=== PATIENT | female | born 1995 | race Caucasian/White ===

== ENCOUNTER 2016-12-08 19:19 | Emergency (ER) | payer SELFPAY ==
[2016-12-08 20:02] LABS: Hematocrit 41 % (35-47); Hemoglobin 13.7 g/dl (12.0-16.0); Mean Corpuscular HGB Conc 33 g/dl (31-36); Mean Corpuscular Hemoglobin 32 pg (27-31); Mean Corpuscular Volume 96 fL (80-97); Mean Platelet Volume 9 um3 (7.4-10.4); Red Blood Count 4.27 10^6/ul (4.0-5.4); Red Cell Distribution Width 13 % (10.5-15)
[2016-12-08 20:17] LABS: ALT 11 U/L (7-52); AST 21 U/L (13-39); Albumin 4.1 g/dL (3.2-5.2); Alkaline Phosphatase 62 U/L (34-104); Anion Gap 12 mmol/L (2-11); BUN/Creatinine Ratio 11.1 (8-20); Blood Urea Nitrogen 11 mg/dL (6-24); CO2 Carbon Dioxide 22 mmol/L (22-32); Calcium 8.9 mg/dL (8.6-10.3); Chloride 106 mmol/L (101-111); EGFR African American 90.2 (>60); EGFR Non-African American 70.1 (>60); Globulin 2.9 g/dL (2-4); Glucose 113 mg/dL (70-100); Potassium 3.6 mmol/L (3.5-5.0); Sodium 140 mmol/L (133-145)
[2016-12-08 20:42] LABS: Acetaminophen < 15 mcg/mL; Alcohol 284 mg/dL (<10); Salicylate < 2.50 mg/dL (<30)
[2016-12-08 20:53] LABS: TSH (Thyroid Stimulating Horm) 1.11 mcIU/mL (0.34-5.60)
[2016-12-08 22:35] VITALS: BP 102/65
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
== END 2016-12-08 23:09 | disposition home or self-care (01) ==
LOC: ED 19:19
DX: F10.129 Alcohol abuse with intoxication, unspecified (principal); Y90.8 Blood alcohol level of 240 mg/100 ml or more
CPT/HCPCS: 36415; 80053; 80320; 80329; 84443; 84702; 85025; 99284; G0480

== ENCOUNTER 2018-12-09 16:03 | Emergency (ER) | payer BC, OTHER ==
[2018-12-09 16:20] VITALS: BP 150/90
--- NOTE | 2018-12-09 16:36 | UC ---
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 hyper extended right wrist and felt pop in right proximal FA c/o pain even at rest no decreased ROM - History Of Current Complaint Chief Complaint: UCUpperExtremity Stated Complaint: RT ARM PAIN Time Seen by Provider: 12/09/18 16:17 Hx Obtained From: Patient Hx Last Menstrual Period: 02/21/19 Onset/Duration: Sudden Onset, Lasting Days Severity Initially: Moderate Severity Currently: Moderate Pain Intensity: 7 Pain Scale Used: 0-10 Numeric Character Of Pain: Sharp, Dull, Aching, Throbbing Aggravating Factor(s): Movement Alleviating Factor(s): Rest Associated Signs And Symptoms: Negative: Swelling, Redness, Bruising, Fever, Weakness, Numbness/Tingling Related History: Occupational Injury, Dominant Hand Right Hands: 1 - pain - Allergies/Home Medications Allergies/Adverse Reactions: Allergies Allergy/AdvReac Type Severity Reaction Status Date / Time No Known Allergies Allergy Verified 12/09/18 16:20 PMH/Surg Hx/FS Hx/Imm Hx Previously Healthy: Yes - Surgical History Surgical History: Yes Surgery Procedure, Year, and Place: wisdom teeth - Family History Known Family History: Positive: Hypertension - Social History Alcohol Use: Weekly Substance Use Type: None Smoking Status (MU): Light Every Day Tobacco Smoker Review of Systems All Other Systems Reviewed And Are Negative: Yes Constitutional: Positive: Negative Skin: Positive: Negative Eyes: Positive: Negative ENT: Positive: Negative Respiratory: Positive: Negative Cardiovascular: Positive: Negative Gastrointestinal: Positive: Negative Genitourinary: Positive: Negative Musculoskeletal: Positive: Arthralgia - right wrist, Myalgia - right forearm Neurological: Positive: Negative Psychological: Positive: Negative Physical Exam Triage Information Reviewed: Yes Appearance: Well-Appearing, No Pain Distress, Well-Nourished Vital Signs: Initial Vital Signs Temp 99 F 12/09/18 16:09 Pulse 85 12/09/18 16:09 Resp 12 12/09/18 16:09 BP 150/90 12/09/18 16:09 Pulse Ox 100 12/09/18 16:09 Vital Signs Reviewed: Yes Eyes: Positive: Conjunctiva Clear ENT: Positive: Hearing grossly normal. Negative: Nasal congestion, Nasal drainage, Trismus, Muffled voice, Hoarse voice Dental: Negative: Gross Decay/Caries @ Neck: Positive: Supple Respiratory: Positive: Lungs clear, Normal breath sounds, No respiratory distress, No accessory muscle use Cardiovascular: Positive: RRR, No Murmur Musculoskeletal: Positive: ROM Intact, No Edema, Other: - FROM right wrist, wrist slightly tender, no swelling, point tenderness right prox forearm ROM right elbow and shoulder Neurological: Positive: Alert Psychological Exam: Normal Skin Exam: Normal Images Front/Back of Body, Lg ([place]): 1 - pain 2 - radiates here Hand/Wrist Course/Dx - Course Course Of Treatment: pt refuses imaging, refuses rg wrap on forearm, refuses wrist splint she refuses a work note despite acknowledging that she will not be able to do here job in her current condition I informed her I thought she partially tore her forearm muscle and sprained her wrist given Dr. Shelton number - Differential Dx/Diagnosis Provider Diagnosis: Right wrist sprain, Muscle strain of right forearm Discharge - Sign-Out/Discharge Documenting (check all that apply): Patient Departure All imaging exams completed and their final reports reviewed: No Studies - Discharge Plan Condition: Stable Disposition: HOME Patient Education Materials: Muscle Strain (ED), Wrist Sprain (ED) Referrals: Mendez Scruggs MD [Medical Doctor] - As Soon As Possible Additional Instructions: rest elevate ice advil or aleve - Billing Disposition and Condition Condition: STABLE Disposition: Home
== END 2018-12-09 17:13 | disposition home or self-care (01) ==
LOC: UCEAST 16:03
DX: S63.501A Unspecified sprain of right wrist, initial encounter (principal); X50.0XXA Overexertion from strenuous movement or load, initial encounter; Y93.89 Activity, other specified; Y92.511 Restaurant or cafe as the place of occurrence of the external cause; Y99.0 Civilian activity done for income or pay
CPT/HCPCS: 99211; G0463